=== PATIENT | male | born 1955 ===

== ENCOUNTER 2016-05-29 23:22 | Observation (INO) | payer MEDICAID ==
--- NOTE | 2016-05-29 23:29 | EDPHY ---
H & P HPI/ROS: HPI CHIEF COMPLAINT: Chest pain, shortness of breath HISTORY OF PRESENT ILLNESS: This patient is 60-year-old male significant past medical history for hypertension, hyperlipidemia, coronary artery disease with [address] Mendez. This patient tells me that he was released from [facility] today and he was waiting outside for the boss however the bus never came he decided to walk a few miles back to halfway when he developed left-sided chest discomfort he describes as a dull pain at time sharp, nonradiating stays in his left chest. He tells me that it got worse as he exerted himself. He tells me that he got back to the halfway he sat down lobby after prolonged walked back to the halfway he had worsening pain. 911 was called and EMS evaluated the patient brought him here to the emergency room. The patient tells me is no way to get home he lives in [place] he tells me was released from halfway today and waiting for a bus. Tells me he was very cold outside waiting for the bus he denies any chest pain while he is waiting however when he walked back to the halfway he developed this pain. This approximately an hour and a half ago. Currently upon arrival to emergency room does complain of 6/10 left-sided chest discomfort. He has associated shortness of breath with this also tells me that he has bilateral lower extremity swelling that is worse than normal. Past Medical History: Hypertension, hyperlipidemia, obesity, diabetes, coronary disease with 4 stents Past Surgical History: PTCA stent placement Social History: History of smoking, no daily use of alcohol or drugs, lives in [place] just released from halfway Family History: Noncontributory ROS REVIEW OF SYSTEMS: A comprehensive 10 point review of systems is otherwise negative aside from elements mentioned in the history of present illness. Exam Constitutional triage nursing summary reviewed, vital signs reviewed, awake/ alert. Eyes normal conjunctivae and sclera, EOMI, PERRLA. HENT normal inspection, atraumatic, moist mucus membranes, no epistaxis, neck supple/ no meningismus, no raccoon eyes. Respiratory clear to auscultation bilaterally, normal breath sounds, no respiratory distress, no wheezing. Cardiovascular rate normal, regular rhythm, no murmur, no edema, distal pulses normal. Gastrointestinal soft, non-tender, no rebound, no guarding, normal bowel sounds, no distension, no pulsatile mass. Genitourinary no CVA tenderness. Musculoskeletal bilateral lower extremity 1+ pitting edema, no midline vertebral tenderness, full range of motion, no calf swelling, no tenderness of extremities, no meningismus, good pulses, neurovascularly intact. Skin pink, warm, & dry, no rash, skin atraumatic. Neurologic awake, alert and oriented x 3, AAOx3, moves all 4 extremities equally, motor intact, sensory intact, CN II-XII intact, normal cerebellar, normal vision, normal speech. Psychiatric normal mood/affect. Heme/Lymph/Immune no lymphadenopathy. Differential diagnosis includes but is not limited to: ACS, atypical chest pain , pneumothorax, pneumonia, pulmonary embolism, aortic dissection, congestive heart failure, tumor, musculoskeletal pain, esophageal pain, GERD, peptic ulcer disease, pancreatitis Medical Decision Making: This patient had an IV established obtain an EKG, chest x-ray, blood work including cardiac markers receive full-dose aspirin we will order him a dose of nitroglycerin to see if this improves his chest discomfort. And re-evaluate. We placed a full customer success director for monitoring. Re-evaluation: EKG interpretation by me on record in [facility] system. Impression time of EKG 2332, this is sinus rhythm rate of 91, are Q-waves noted in inferior leads to 3 AVF. Re-evaluation at this time 0146: this patient is resting comfortably he has no chest pain. In fact he was sleeping here in the emergency room. Once woke he has no complaints. His blood work has been reviewed he does have a borderline indeterminate troponin for this reason he will be admitted given his history of chest pain and slightly elevated troponin. He does have underlying coronary artery disease. I have ordered him Lovenox 1 milligram/kilogram. He has received full dose aspirin here 1 dose of nitro. He is chest pain free at this time. His EKG has been reviewed no acute ischemic changes seen on a. ED x-ray chest: one view no acute cardiopulmonary disease visualize cardiomegaly seen on chest x-ray. Otherwise unremarkable. I did update patient he agrees for admission. Source: Patient Constitutional: Initial Vital Signs Temperature (C) 36.6 C 05/29/16 23:22 Heart Rate 90 05/29/16 23:22 Respiratory Rate 18 05/29/16 23:22 Blood Pressure 144/100 H 05/29/16 23:22 O2 Sat (%) 95 05/29/16 23:22 O2 Delivery Mode Nasal Cannula O2 (L/minute) 2 Allergies/Adverse Reactions: niacin Allergy (Verified 05/30/16 00:07) Home Medications: Medication Instructions Recorded Atenolol 05/30/16 Lasix 05/30/16 Lisinopril 05/30/16 Oxycontin 05/30/16 Medical Decision Making - Data Points Laboratory Results: Laboratory Results 05/29/16 23:55 05/30/16 01:05 Medications Given: Discontinued Medications Aspirin (Aspirin) 324 mg PO EDNOW ONE Stop: 05/29/16 23:37 Last Admin: 05/29/16 23:43 Dose: Not Given Aspirin (Aspirin) 325 mg PO DAILY [facility] Stop: 11/26/16 08:59 Last Admin: 05/30/16 09:13 Dose: 325 mg Sodium Chloride (Ns) 500 mls @ 0 mls/hr IV ONCE ONE PRN Reason: As Directed Stop: 05/29/16 23:37 Last Admin: 05/30/16 00:01 Dose: 500 mls Metoprolol Tartrate (Lopressor) 12.5 mg PO BID [facility] Stop: 11/26/16 02:59 Last Admin: 05/30/16 09:14 Dose: Not Given Departure - Departure Disposition: [facility] Clinical Impression: Elevated troponin level Chest pain Qualifiers: Chest pain type: unspecified Qualifier Code: (R07.9) Chest pain, unspecified Condition: Fair
--- NOTE | 2016-05-29 23:33 | CPEKG ---
Heart Rate: 91 RR Interval: 659 P-R Interval: 164 QRSD Interval: 88 QT Interval: 424 QTC Interval: 522 P [place]: -12 QRS [place]: 19 T Wave [place]: 38 EKG Severity - ABNORMAL ECG - EKG Impression: SINUS RHYTHM EKG Impression: PROBABLE INFERIOR INFARCT, OLD EKG Impression: PROLONGED QT INTERVAL Electronically Signed By: Alexander Richmond 01-Jun-2016 04:14:35
[2016-05-29] MEDS ORDERED: ASPIRIN 81 MG CHEWABLE TAB PO ONE (23:36)
[2016-05-29] MEDS ORDERED: NITROGLYCERIN 0.4 MG BTL SL PRN (23:36)
[2016-05-29] MEDS ORDERED: NS 500 ML IV ONE (23:36)
--- NOTE | 2016-05-30 00:04 | DX ---
Portable AP upright chest, at 11:47 p.m. Clinical history: 60-year-old male in the ED complaining of chest pain and shortness of breath. The p atient has a prior medical history of hypertension, hyperlipidemia, and coronary artery disease with prior stenting. Comparison Study: None currently available. Findings: Telemetry monitoring lead lines are noted. The cardiac silhouette is at the upper limits of normal, given the portable AP technique. There is some mild peribronchial thickening. There is no fo live infiltrate, atelectasis, pleural effusion, peripheral interstitial edema, or pneumothorax. The tr achea is midline. The osseous structures are age-appropriate. Impression: 1. Top-normal sized cardiac silhouette (given the portable AP technique). 2. Mild peribronchial thickening, without a focal infiltrate.
[2016-05-30 00:05] LABS: % IMMATURE GRANULYOCYTES 0.5 % (0.0-1.1); ABSOLUTE IMMATURE GRANULOCYTES 0.05 10^3/uL (0.00-0.10); ADD DIFF? NO; ADD MORPH? NO; ADD SCAN? NO; ATYPICAL LYMPHOCYTE FLAG 20 (0-99); FRAGMENT RBC FLAG 0 (0-99); HEMATOCRIT 51.2 % (40.0-51.0); HEMOGLOBIN 17.4 g/dL (13.7-17.5); LEFT SHIFT FLG 0 (0-99); LIPEMIA HEMOLYSIS FLAG 90 (0-99); MEAN CELL HEMOGLOBIN 31.9 pg (27.9-34.1); MEAN CELL VOLUME 93.9 fL (81.5-99.8); MEAN PLATELET VOLUME 9.2 fL (8.7-11.7); PLATELET CLUMPS FLAG 30 (0-99); PLATELET COUNT 161 10^3/uL (150-400); RED BLOOD CELL COUNT 5.45 10^6/uL (4.40-6.38); RED CELL DISTRIBUTION WIDTH 12.4 % (11.5-15.2)
[2016-05-30 00:15] LABS: APTT 25.5 SEC (23.0-38.0); INR 1.06 (0.83-1.16); PROTIME(PATIENT) 13.7 SEC (12.0-15.0)
[2016-05-30 01:25] LABS: ALANINE AMINOTRANSFERASE 29 IU/L (21-72); ALBUMIN 3.6 g/dL (3.5-5.0); ALKALINE PHOSPHATASE 100 IU/L (38-126); ANION GAP 11 mEq/L (8-16); ASPARTATE AMINOTRANSFERASE 24 IU/L (17-59); BILIRUBIN-CONJUGATED 0.5 mg/dL (0.0-0.5); BILIRUBIN-UNCONJUGATED 0.5 mg/dL (0.0-1.1); CALCIUM 8.4 mg/dL (8.5-10.4); CARBON DIOXIDE 25 mEq/l (22-31); CHLORIDE 105 mEq/L (97-110); CREATININE 0.7 mg/dL (0.7-1.3); GLOMERULAR FILTRATION RATE > 60; GLUCOSE 89 mg/dL (70-100); MAGNESIUM 1.9 mg/dL (1.6-2.3); POTASSIUM 3.8 mEq/L (3.5-5.2); SODIUM 141 mEq/L (134-144); TOTAL PROTEIN 6.7 g/dL (6.3-8.2)
[2016-05-30 01:38] LABS: TROPONIN I 0.062 ng/mL (0-0.034)
[2016-05-30 01:43] LABS: CK-MB INTERPRETATION NEGATIVE (NEGATIVE); CREATINE KINASE-MB FRACTION 3.42 ng/mL (0-3.19)
[2016-05-30] MEDS ORDERED: NITROGLYCERIN 0.4 MG BTL SL PRN (02:31)
[2016-05-30] MEDS ORDERED: ACETAMINOPHEN 325 MG TAB PO PRN (02:31)
[2016-05-30] MEDS ORDERED: CEPACOL LOZENGE PO PRN (02:33)
[2016-05-30] MEDS ORDERED: LIDOCAINE 2% VISCOUS 15 ML UDCUP PO PRN (02:33)
[2016-05-30] MEDS ORDERED: guaiFENesin/CODEINE PHOS 10 ML UDCUP PO PRN (02:34)
--- NOTE | 2016-05-30 02:38 | PDGENHP ---
History and Physical - Chief Complaint Acute chest pain - History of Present Illness Date of admission: 05/30/2016 PCP: Felix Primary microbiology lab assistant: Dr. Mendez HPI: 60-year-old male presenting with acute chest pain characterized as intense pain located in his anterior chest with associated dyspnea on exertion, exacerbated by the cold temperature and associated with a sore throat, nonproductive cough. Patient reports that the onset of his sore throat, subjective fevers, cough was approximately 1 week ago and duration has been persistent thereafter. He was taken to long-term for DUI recently, and he was released on the day of this presentation. The patient reports that he ambulated quite a distance to the bus stop, missed the bus, ambulated back to the long-term, and that is when his chest discomfort symptoms began. They persisted until he was seen in the emergency department which time he received aspirin and sublingual nitroglycerin. The patient is unable to discern whether he has experienced symptoms like this in the past. He is also unable to detail how physically active he is on a normal day. He reports that he has been taking aspirin regularly and he has also been taking his home medications regularly. Is unable to list what any of his home medications are. He is unable to tell me he has last seen a physician. He reports that he has been several years since he has seen Dr. Mendez and has been several years since he received stress test. History Information - Allergies/Home Medication List Allergies/Adverse Reactions: niacin Allergy (Verified 05/30/16 00:07) Home Medications: Atenolol 05/30/16 [Last Taken Unknown] Lasix 05/30/16 [Last Taken Unknown] Lisinopril 05/30/16 [Last Taken Unknown] Oxycontin 05/30/16 [Last Taken Unknown] I have personally reviewed and updated: family history, medical history, social history, surgical history - Past Medical History coronary artery disease (With reported stent), diabetes type 2, hypertension, hyperlipidemia Additional medical history: Chronic lower back pain, chronic knee pain - Surgical History Reports: no pertinent surgical hx - Family History Additional family history: Mother with CAD and [place] in her 70s - Social History Smoking Status: Former smoker Alcohol Use: Occasionally (Reports he has never had acute alcohol withdrawal) Drug Use: Cocaine (In the past, none recently, reports no IV drug use) Additional social history: Normally independent in his ADLs, released from long-term on the day of this presentation Review of Systems ROS: 10pt was reviewed & negative except for what was stated in HPI & below Constitutional: Reports: fever EENMT: Reports: sore throat Cardiac: Reports: chest pain Physical Exam Temp Pulse Resp BP Pulse Ox 36.6 C 94 18 153/87 H 100 05/29/16 23:22 05/30/16 02:18 05/30/16 02:18 05/30/16 02:18 05/30/16 02:18 O2 (L/minute) 2 Constitutional: no apparent distress, appears nourished, not in pain, obese, No uncomfortable Eyes: PERRL, EOMI, scleral injection Ears, Nose, Mouth, Throat: moist mucous membranes, hearing normal, ears appear normal, no oral mucosal ulcers Cardiovascular: regular rate and rhythym, no murmur, rub, or gallop, edema ( Trace bilateral lower extremity edema, right greater than left), No irregularly irregular Respiratory: other (Faint inspiratory wheezes), No reduced air movement, No expiratory wheeze, No inspiratory crackles, No bronchial breath sounds, No respiratory distress Gastrointestinal: normoactive bowel sounds, soft, non-tender abdomen, no palpable masses Skin: warm, normal color, no rashes or abrasions, no fluctuance, no induration, No mottled Musculoskeletal: other (Mild tenderness to palpation over the left anterior pectoralis muscle, full range of motion of left shoulder without pain) Neurologic: AAOx3, sensation intact bilaterally, No facial droop Psychiatric: not anxious, not encephalopathic, thought process linear, flat affect, No agitated Lymph, Heme, Immunologic: other (Tender 2 cm bilateral submandibular lymph nodes , no posterior cervical lymphadenopathy) Lab Data & Imaging Review 05/29/16 23:55 05/30/16 01:05 WBC 9.58 10^3/uL (3.80-9.50) H 05/29/16 23:55 RBC 5.45 10^6/uL (4.40-6.38) 05/29/16 23:55 Hgb 17.4 g/dL (13.7-17.5) 05/29/16 23:55 Hct 51.2 % (40.0-51.0) H 05/29/16 23:55 MCV 93.9 fL (81.5-99.8) 05/29/16 23:55 MCH 31.9 pg (27.9-34.1) 05/29/16 23:55 MCHC 34.0 g/dL (32.4-36.7) 05/29/16 23:55 RDW 12.4 % (11.5-15.2) 05/29/16 23:55 Plt Count 161 10^3/uL (150-400) 05/29/16 23:55 MPV 9.2 fL (8.7-11.7) 05/29/16 23:55 Neut % (Auto) 71.2 % (39.3-74.2) 05/29/16 23:55 Lymph % (Auto) 17.5 % (15.0-45.0) 05/29/16 23:55 [place] % (Auto) 8.4 % (4.5-13.0) 05/29/16 23:55 Eos % (Auto) 1.9 % (0.6-7.6) 05/29/16 23:55 Baso % (Auto) 0.5 % (0.3-1.7) 05/29/16 23:55 Nucleat RBC Rel Count 0.0 % (0.0-0.2) 05/29/16 23: Absolute Neuts (auto) 6.82 10^3/uL (1.70-6.50) H 05/29/16 23:55 Absolute Lymphs (auto) 1.68 10^3/uL (1.00-3.00) 05/29/16 23:55 Absolute Monos (auto) 0.80 10^3/uL (0.30-0.80) 05/29/16 23:55 Absolute Eos (auto) 0.18 10^3/uL (0.03-0.40) 05/29/16 23:55 Absolute Basos (auto) 0.05 10^3/uL (0.02-0.10) 05/29/16 23:55 Absolute Nucleated RBC 0.00 10^3/uL (0-0.01) 05/29/16 23:55 Immature Gran % 0.5 % (0.0-1.1) 05/29/16 23:55 Immature Gran # 0.05 10^3/uL (0.00-0.10) 05/29/16 23:55 PT 13.7 SEC (12.0-15.0) 05/29/16 23:55 INR 1.06 (0.83-1.16) 05/29/16 23:55 APTT 25.5 SEC (23.0-38.0) 05/29/16 23:55 D-Dimer 0.28 ug/mLFEU (0.00-0.50) 05/29/16 23:55 Turbidity REJ 05/30/16 00:20 Sodium 141 mEq/L (134-144) 05/30/16 01:05 Potassium 3.8 mEq/L (3.5-5.2) 05/30/16 01:05 Chloride 105 mEq/L (97-110) 05/30/16 01:05 Carbon Dioxide 25 mEq/l (22-31) 05/30/16 01:05 Anion Gap 11 mEq/L (8-16) 05/30/16 01:05 BUN 14 mg/dL (7-23) 05/30/16 01:05 Creatinine 0.7 mg/dL (0.7-1.3) 05/30/16 01:05 Estimated GFR > 60 05/30/16 01:05 Glucose 89 mg/dL (70-100) 05/30/16 01:05 Calcium 8.4 mg/dL (8.5-10.4) L 05/30/16 01:05 Magnesium 1.9 mg/dL (1.6-2.3) 05/30/16 01:05 Total Bilirubin 1.0 mg/dL (0.1-1.4) 05/30/16 01:05 Conjugated Bilirubin 0.5 mg/dL (0.0-0.5) 05/30/16 01:05 Unconjugated Bilirubin 0.5 mg/dL (0.0-1.1) 05/30/16 01:05 AST 24 IU/L (17-59) 05/30/16 01:05 ALT 29 IU/L (21-72) 05/30/16 01:05 Alkaline Phosphatase 100 IU/L (38-126) 05/30/16 01:05 Creatine Kinase 132 IU/L (0-224) 05/30/16 01:05 CK-MB (CK-2) Fraction 3.42 ng/mL (0-3.19) H 05/30/16 01:05 CK-MB (CK-2) % 2.6 % (0.0-4.0) 05/30/16 01:05 Creatine Kinase Interp NEGATIVE (NEGATIVE) 05/30/16 01:05 Troponin I 0.062 ng/mL (0-0.034) H 05/30/16 01:05 NT-Pro-B Natriuret Pep 196 pg/mL (0-125) H 05/30/16 01:05 Total Protein 6.7 g/dL (6.3-8.2) 05/30/16 01:05 Albumin 3.6 g/dL (3.5-5.0) 05/30/16 01:05 Lipase 70.0 IU/L (23-300) 05/30/16 01:05 Specimen Hemolysis REJ 05/30/16 00:20 Visualized and Interpreted Chest x-ray results: Yes Chest X-Ray results: no infiltrate, other (Cardiomegaly, faint interstitial markings) Visualized and Interpreted EKG results: Yes EKG Interpretation: Positive for: other (Q wave in lead 3) Assessment & Plan Assessment: 60-year-old male presents with acute chest pain in the setting of chronic coronary artery disease Plan: 1. Chest pain. Acute, new problem this provider, further workup indicated. Patient is high risk for acute coronary syndrome given his underlying coronary artery disease as well as his marginally elevated troponin level, other possible etiologies include pericarditis versus viral syndrome -ruled out for pulmonary embolism with negative D-dimer -repeat troponin level with a.m. labs and monitor on telemetry -if patient's troponin level is negative on morning draw, then get exercise EKG stress test -get influenza PCR -echocardiogram and evaluate for pericardial effusion -order outside records from [facility] including most recent clinic note which Dr. Mendez, as well as most recent echocardiogram -treat supportively with Tylenol, viscous lidocaine, Cepacol lozenges, guaifenesin codeine, sublingual nitroglycerin if persists -empirically treat for potential ACS with full-dose aspirin, low-dose beta- rich 2. Chronic coronary artery disease. Will continue patient's home medications once reconciled 3. Hypertension. Chronic, currently administering low-dose beta-rich, will readjust her home medications once reconciled Diet. Cardiac diet, NPO in a.m. Prophylaxis. Low risk patient, SCDs Code status. Full Disposition. Anticipated discharge is 05/30 pending further workup as outlined above. I have discussed with Dr. Richmond in the emergency department, we both agree that the EACU is appropriate for this patient.
--- NOTE | 2016-05-30 03:05 | CPEKG ---
Heart Rate: 86 RR Interval: 698 P-R Interval: 164 QRSD Interval: 90 QT Interval: 436 QTC Interval: 522 P [place]: 8 QRS [place]: 30 T Wave [place]: 45 EKG Severity - ABNORMAL ECG - EKG Impression: SINUS RHYTHM EKG Impression: BORDERLINE INFERIOR Q WAVES EKG Impression: PROLONGED QT INTERVAL Electronically Signed By: Brent Keller 31-May-2016 10:52:05
[2016-05-30] MEDS: METOPROLOL TARTRATE 25 MG TAB PO SCH ×2 (03:27→09:14)
[2016-05-30 04:40] LABS: % IMMATURE GRANULYOCYTES 0.4 % (0.0-1.1); ABSOLUTE IMMATURE GRANULOCYTES 0.03 10^3/uL (0.00-0.10); ADD DIFF? NO; ADD MORPH? NO; ADD SCAN? NO; ATYPICAL LYMPHOCYTE FLAG 0 (0-99); FRAGMENT RBC FLAG 0 (0-99); HEMATOCRIT 47.2 % (40.0-51.0); HEMOGLOBIN 16.5 g/dL (13.7-17.5); LEFT SHIFT FLG 0 (0-99); LIPEMIA HEMOLYSIS FLAG 90 (0-99); MEAN CELL VOLUME 91.5 fL (81.5-99.8); MEAN PLATELET VOLUME 9.2 fL (8.7-11.7); PLATELET CLUMPS FLAG 0 (0-99); PLATELET COUNT 171 10^3/uL (150-400); RED BLOOD CELL COUNT 5.16 10^6/uL (4.40-6.38); RED CELL DISTRIBUTION WIDTH 12.5 % (11.5-15.2)
[2016-05-30 05:08] LABS: ANION GAP 12 mEq/L (8-16); CALCIUM 8.3 mg/dL (8.5-10.4); CARBON DIOXIDE 23 mEq/l (22-31); CHLORIDE 104 mEq/L (97-110); CHOLESTEROL 134 mg/dL (140-220); CHOLESTEROL/HDL RATIO 2.85 RATIO (1.00-4.97); CREATININE 0.6 mg/dL (0.7-1.3); GLOMERULAR FILTRATION RATE > 60; GLUCOSE 94 mg/dL (70-100); HIGH DENSITY LIPOPROTEIN 47 mg/dL (40-65); LDL/HDL RATIO 1.47 RATIO (1.00-3.64); LOW DENSITY LIPOPROTEIN 69 mg/dL (80-100); NON-HIGH DENSITY LIPOPROTEIN 87 mg/dL (90-129); POTASSIUM 3.6 mEq/L (3.5-5.2); SODIUM 139 mEq/L (134-144); TRIGLYCERIDE 92 mg/dL (40-150); VERY LOW DENSITY LIPOPROTEINS 18 mg/dL (8-25)
[2016-05-30 05:18] LABS: TROPONIN I 0.101 ng/mL (0-0.034)
[2016-05-30 08:37] VITALS: RESP 14; TEMP 97.8; O2SAT 98
[2016-05-30] MEDS ORDERED: ASPIRIN 325 MG TAB PO SCH (09:00)
[2016-05-30 09:15] VITALS: BP 100/64; PULSE 88
--- NOTE | 2016-05-30 14:43 | PDDCSUM ---
Discharge Summary Discharge Summary: Dates of service 05/30/16 This is an against medical advice discharge Hospital course # chest pain/ACS: with chest pain on presentation and increasing troponins. Cardiology was consulted however patient elected to leave AMA before they could see him. Advised patient that he could be having a heart attack, that he could , that further evaluation was necessary, however he declined any further treatement or evaluation and left the hospital.
[2016-06-01 10:37] LABS: HEMOGLOBIN A1C 5.5 % (4.0-6.0)
== END 2016-05-30 09:55 | disposition left against medical advice (07) ==
LOC: F1N 05-30 02:43
PROVIDERS: ADMIT Internal Medicine; ATTEND Internal Medicine
DX: R07.9 Chest pain, unspecified (principal); R78.89 Finding of other specified substances, not normally found in blood; I10 Essential (primary) hypertension; E78.5 Hyperlipidemia, unspecified; I25.10 Atherosclerotic heart disease of native coronary artery without angina pectoris; Z95.5 Presence of coronary angioplasty implant and graft; Z65.3 Problems related to other legal circumstances; Z87.891 Personal history of nicotine dependence
CPT/HCPCS: 71010; 93005; 99285; G0378